=== PATIENT | female | born 1945 | race Caucasian/White ===

== ENCOUNTER 2017-07-01 06:47 | Day surgery (SDC) | payer OTHER ==
[2017-06-29 11:13] LABS: Absolute Lymphocytes (CBC) 2.2 K/uL (0.7-4.9); Absolute Monocytes 0.6 K/uL (0.1-1.3); Basophils % 0.3 % (0-1.3); Eosinophils % 3.7 % (0-4.4); Hematocrit 44.9 % (36.0-45.0); Lymphocytes % 24.5 % (15.3-44.8); MCH 30.4 pg (27.0-35.0); MCV 93.1 fL (80-100); MPV 9.9 fL (7.6-11.3); Monocytes % 6.2 % (3.3-12.3); RBC Red Blood Cell Count 4.83 M/uL (3.86-4.86)
[2017-07-01] MEDS ORDERED: Ringers Lactate 1,000 ML IV ONE (07:02)
[2017-07-01] MEDS ORDERED: MIDAZOLAM HCL 2 MG/2 ML INJ ONE (08:20)
[2017-07-01] MEDS ORDERED: PROPOFOL 200 MG/20 ML VIAL IV ONE (08:40)
[2017-07-01] MEDS ORDERED: LIDOCAINE 1% MPF 2 ML AMPULE ONE ×2 (08:40→08:52)
[2017-07-01] MEDS ORDERED: FENTANYL CITR 100 MCG/2 ML ONE (08:41)
[2017-07-01] MEDS ORDERED: MEPERIDINE HCL 50 MG/ML AMP ONE (09:35)
--- NOTE | 2017-07-01 21:10 | OP ---
Date of Procedure: 07/01/2017 Surgeon: Melissa Sterling MD Preoperative Diagnosis: Pelvic pain, postmenopausal bleeding and thickened endometrium. Postoperative Diagnoses: Pelvic pain, postmenopausal bleeding and thickened endometrium. Procedures Performed: Hysteroscopy, D and C, endometrial curettings with the Symphion resectoscope d evice. Anesthesia: General with LMA. Specimens: Endometrial curettings. Complications: None. Drains: None. Condition: Stable. Indications: The patient is a 72-year-old who initially presented with postmenopausal bleeding and P ap that was AGC, however, colposcopy was negative. Repeat Pap negative in 6 months. However, althou gh the postmenopausal bleeding had resolved, she continues to have pelvic pain and on repeat endometr ial evaluation with ultrasound and this appeared to be thickened, so we discussed the options of poss ible underlying uterine atypia and endometrial atypia or malignancy. The patient understood that she has option of doing re-sampling procedure using a different technique like resectoscope or proceedin g with a hysterectomy or observation with ultrasound followup. The patient chose to have the hystero scopy with the resectoscope, so she was brought into the hospital for this. Procedure In Detail: After re-consenting, she was taken back to the OR, placed in a supine fashion o n the operating table. General anesthesia was given and placed in a dorsal lithotomy position. Cerv ix, vulva, vagina, and perineum were prepped and draped in a sterile fashion. Anterior lip was grasp ed with 2 Allis clamps, which appeared to not be very stable on the cervix, so a single-tooth tenacul um was placed. Then, using the dilators, the cervix was dilated to 14-Amharic. Then, the resectoscop e was inserted under direct visualization through the cervical canal. Uterine cavity was entered. T he cavity was empty. The endometrium appeared to be slightly irregular and thickened in the anterior wall. Rest of the endometrium appeared to be mostly normal, not very atrophic however, so the resec toscope device was opened up and inserted through the scope and dissection was done in a 360 degree f ashion on all the jin, especially paying attention to the anterior jin. After adequate tissue wa s obtained, the scope was pulled out. There was excellent hemostasis. All the instruments were pull ed out. Instrument, needle, and sponge counts were correct at the end of the case. The patient tole rated the procedure well. She will follow up with me in 1 week for results. JOSE Voice ID: [id number] Report ID: [id number]
== END 2017-07-01 10:25 | disposition home or self-care (01) ==
LOC: OR 06:47
PROVIDERS: ATTEND Obstetrics & Gynecology
PROC: 0UDB8ZX Extraction of Endometrium, Via Natural or Artificial Opening Endoscopic, Diagnostic (ICD-10-PCS; principal; 2017-07-01 08:00)
DX: N95.0 Postmenopausal bleeding (principal); R10.2 Pelvic and perineal pain; K57.30 Diverticulosis of large intestine without perforation or abscess without bleeding; R93.8 Abnormal findings on diagnostic imaging of other specified body structures; N84.0 Polyp of corpus uteri; I10 Essential (primary) hypertension; E78.00 Pure hypercholesterolemia, unspecified; R12 Heartburn; E66.9 Obesity, unspecified; Z80.0 Family history of malignant neoplasm of digestive organs; Z83.3 Family history of diabetes mellitus
CPT/HCPCS: 36415; 58558; 85025; 88305; J2001 ×2; J2175; J3010; J2250

== ENCOUNTER 2017-08-05 05:56 | Day surgery (SDC) | payer OTHER ==
[2017-08-03 14:54] LABS: Absolute Lymphocytes (CBC) 2.5 K/uL (0.7-4.9); Absolute Monocytes 0.6 K/uL (0.1-1.3); Absolute Neutrophil 5.2 K/uL (1.8-8.0); Basophils % 0.7 % (0-1.3); Eosinophils % 5.4 % (0-4.4); Hematocrit 43.9 % (36.0-45.0); Lymphocytes % 28.6 % (15.3-44.8); MCH 30.5 pg (27.0-35.0); MCV 93.2 fL (80-100); MPV 10.5 fL (7.6-11.3); Monocytes % 6.5 % (3.3-12.3); RBC Red Blood Cell Count 4.71 M/uL (3.86-4.86)
[2017-08-03 14:55] LABS: Urine Appearance CLOUDY; Urine Blood NEGATIVE (NEG); Urine Color DK YELLOW; Urine Glucose NEGATIVE (NEG); Urine Protein TRACE (NEG); Urine Specific Gravity >=1.030 (1.005-1.030); Urine pH 5.5 (5.0-7.0)
[2017-08-03 14:58] LABS: Urine Microscopic Reflex ORDER UMIC
[2017-08-03 15:00] LABS: Protime INR 0.97
[2017-08-03 15:08] LABS: Potassium 4.4 mEq/L (3.6-5.0)
[2017-08-03 15:13] LABS: Urine Bacteria <20 /HPF (<20); Urine Culture Reflex Order NOT NEEDED; Urine Mucus 3+ /HPF (NONE SEEN); Urine RBC <5 /HPF (NONE SEEN)
[2017-08-03 15:14] LABS: Calcium Oxalate Crystals- Ur MODERATE (NONE SEEN)
[2017-08-05] MEDS ORDERED: PROPOFOL 200 MG/20 ML VIAL IV ONE (06:35)
[2017-08-05] MEDS ORDERED: GLYCOPYRROLATE 0.2 MG/ML SYR ONE ×2 (06:36)
[2017-08-05] MEDS ORDERED: LIDOCAINE 2% MPF 5 ML VIAL ONE (06:37)
[2017-08-05] MEDS ORDERED: FENTANYL CITR 250 MCG/5 ML ONE (06:37)
[2017-08-05] MEDS ORDERED: NEOSTIGMINE 1 MG/ML -5 ML SYRINGE ONE (06:39)
[2017-08-05] MEDS ORDERED: ONDANSETRON HCL 40 MG/20 ML VIAL ONE ×2 (06:39→09:25)
[2017-08-05] MEDS ORDERED: ROCURONIUM 50 MG/5 ML VIAL IV ONE ×2 (06:40→08:05)
[2017-08-05] MEDS ORDERED: MIDAZOLAM HCL 2 MG/2 ML INJ ONE (07:09)
[2017-08-05] MEDS ORDERED: SCOPOLAMINE HYDROBROMIDE PATCH TD ONE (07:11)
[2017-08-05] MEDS: CEFAZOLIN/SWI 2gm 2 GM/20 ML SYR IV ONE ×2 (07:19→07:28)
[2017-08-05] MEDS: NA CHLORIDE 0.9% 1,000 ML ONE ×2 (07:19→07:30)
[2017-08-05] MEDS ORDERED: EPHEDRINE SULF 50 MG/5 ML SYR ONE (07:33)
[2017-08-05] MEDS: Ringers Lactate 1,000 ML IV ONE ×2 (09:03→09:21)
[2017-08-05] MEDS ORDERED: Ringers Lactate 1,000 ML IV ONE (09:17)
[2017-08-05] MEDS ORDERED: MORPHINE 10 MG/ML VIAL ONE (09:26)
[2017-08-05] MEDS ORDERED: CEFAZOLIN SODIUM 1 GM/VIAL ONE (10:00)
[2017-08-05] MEDS ORDERED: ONDANSETRON 4 MG/2 ML VIAL ONE (11:37)
[2017-08-05] MEDS ORDERED: PROMETHAZINE 25 MG/ML VIAL ONE (12:27)
--- NOTE | 2017-08-05 12:48 | OP ---
Date of Procedure: 08/05/2017 Surgeon: Melissa Sterling MD Preoperative Diagnoses: Pelvic pain. Endometrial polyps. Postoperative Diagnoses: Pelvic pain. Endometrial polyps. Procedures Performed: Laparoscopic-assisted vaginal hysterectomy, bilateral salpingo-oophorectomy, p elvic washings. Anesthesia: General. Specimens: Uterus, tubes, ovaries, and pelvic washings. Complications: No complications. Drains: No drains. Condition: Stable. Estimated Blood Loss: 50 mL. Findings: Uterus normal size. Evidence of bilateral tubal ligation. Ovaries normal. No other omen rahat masses. Appendix appeared to be normal, as was the gallbladder. The liver had slightly nodular surface. Description Of Procedure: After informed consent was verified, the patient was taken back to the OR, 2 g of Ancef was given. She was placed in a supine position on the operating table. After general anesthesia was given, she was placed in dorsal lithotomy position using Randall stirrups. Arms were tu cked by the side, and on the right side the protective armboard was placed to keep it tucked. Pelvic exam was performed. Uterus was found to be anteflexed, about 8 weeks size. No adnexal masses . Uterus was mobile. No cul-de-sac obliteration. Abdomen, vulva, vagina, and perineum were prepped and draped in a sterile fashion. Mcintyre was placed to drain the bladder and attached to cysto tubing to an LR bag, emptied 300 for retrograde filling, a nd this was left over for drainage. A large VCare was introduced into the uterus and fixed in place in the usual fashion. This area was draped. A 1 cm infraumbilical incision was made with a scalpel using the open laparoscopy technique. Fascia was exposed and incised and tagged with 0 Vicryl sutures. The peritoneum was entered sharply as well . S retractors placed inside the peritoneal cavity and Uriel trocar introduced intact and fixed in place. Survey of the abdominal cavity showed the findings as above. Normal gallbladder, liver, and appendix . The omental and peritoneal surfaces were normal. Omentum appeared to be unremarkable. The patien t was placed in Trendelenburg. This patient had a very expansive peritoneal cavity. She needed to b e in steep Trendelenburg for retraction of bowel. A 10 mm suprapubic and two 5 mm left lower and rig ht lower quadrant ports were placed under direct vision. After exposing the uterus, pelvic washings were performed. Both ureters were identified from the pelvic brim to the ureteric tunnel. There was no evidence of any scar tissue or distortion. Using the bipolar LigaSure, the left mesosalpinx, utero-ovarian ligament, round ligament were all ramez en down. The broad ligament was opened up on both peritoneal surfaces and taken down to skeletonize the vessels. On the opposite side, similar dissection was performed and taken down the utero-ovarian ligament, then the mesosalpinx and round ligament, the 2 leaves of the broad ligament ant eriorly and posteriorly connecting the bladder flap anteriorly and posteriorly to the right uterosacr al ligament. The broad ligaments were taken down, and the vessels were identified. The bladder was cleaned up. The anterior bladder flap was cleared up completely. The vesicovaginal space was entere d by making an incision on top of the precervical fascia getting into the space with a monopolar hook blade. Then, the bladder was dissected inferiorly about 2 cm on all sides, and once the cuff was cl eared up, the vessels were taken down on the right side, then on the left side. Then, colpotomy was performed in a circumferential fashion to separate the uterus and take it down. Then after the uteru s was detached, it was pulled out through the vagina, both tubes and ovaries were exposed. Then the tubes and ovaries were and taken down with the help of the LigaSure, first on the left, then on the r ight side having each other and pulled out through the suprapubic trocar. There was difficulty with the bowel falling on top of the vaginal cuff. The retraction was very diff icult the entire time, so I decided to go down vaginally to close the vaginal cuff. Exposure was obtained with the help of a Jones speculum posteriorly. Anteriorly, a Roby and the eleazar ewall with a [place] as well. Starting at the right end of the cuff, the 0 Vicryl sutures were placed full thickness into the vaginal cuff anteriorly and posteriorly and 5 [id number] sutures were p laced and tied down. Went back superiorly to make sure that the bowel was free and no omentum was st uck there or the epiploicae, and it was completely clear. There was good hemostasis at the vaginal c uff. There was excellent hemostasis at both adnexal areas. Thorough irrigation and suction were per formed. Trocars were removed under direct vision. Fascia at the umbilicus closed with the help of a 0 Vicryl in a nbioms-ec-kokha fashion, and a simple 0 Vicryl stitch at the suprapubic site. All ski n incisions closed with the help of 4-0 Monocryl and Mcintyre removed. VCare bulb removed. Instrument, needle, and sponge counts and the other instrument counts were all correct. She was recovered from anesthesia and taken to PACU in stable condition. She will follow up with me in 1 week. CHEIKH/DEVANTE Voice ID: [id number] Report ID: [id number]
[2017-08-05] MEDS ORDERED: HYDROCODONE/APAP 5/325 MG TAB ONE (14:17)
== END 2017-08-05 14:52 | disposition home or self-care (01) ==
LOC: OR 05:56
PROVIDERS: ATTEND Obstetrics & Gynecology
PROC: 0UT2FZZ Resection of Bilateral Ovaries, Via Natural or Artificial Opening With Percutaneous Endoscopic Assistance (ICD-10-PCS; 2017-08-05)
PROC: 0UT7FZZ Resection of Bilateral Fallopian Tubes, Via Natural or Artificial Opening With Percutaneous Endoscopic Assistance (ICD-10-PCS; 2017-08-05)
PROC: 0UT9FZZ Resection of Uterus, Via Natural or Artificial Opening With Percutaneous Endoscopic Assistance (ICD-10-PCS; principal; 2017-08-05 07:00)
DX: N85.02 Endometrial intraepithelial neoplasia [EIN] (principal); N84.0 Polyp of corpus uteri; N80.0 Endometriosis of uterus; I10 Essential (primary) hypertension; E78.00 Pure hypercholesterolemia, unspecified; F41.9 Anxiety disorder, unspecified; R12 Heartburn; E66.01 Morbid (severe) obesity due to excess calories; Z80.0 Family history of malignant neoplasm of digestive organs; Z83.3 Family history of diabetes mellitus
CPT/HCPCS: 36415; 58552; 80048; 85025; 85610; 85730; 86850; 86900; 86901; 88108; 88305; 88307; J0690 ×2; J2250; J2405 ×3; J2550; J2710; J7030; 81003; 81015

== ENCOUNTER 2020-12-03 07:29 | Day surgery (SDC) | payer OTHER ==
[2020-11-29 15:26] LABS: Absolute Lymphocytes (CBC) 3.2 K/uL (0.7-4.9); Basophils % 0.8 % (0-1.3); Hematocrit 40.4 % (36.0-45.0); MPV 9.5 fL (7.6-11.3); RBC Red Blood Cell Count 4.32 M/uL (3.86-4.86)
--- NOTE | 2020-11-29 15:33 | RAD REPORT ---
EXAM DESCRIPTION: RAD - Chest Pa And Lat (2 Views) - 11/29/2020 3:10 pm CLINICAL HISTORY: Pre Op pending hernia surgery COMPARISON: None TECHNIQUE: Frontal and lateral views of the chest were obtained. FINDINGS: The lungs are clear. Heart size is normal and central vasculature is within normal limit s. No pleural effusion or pneumothorax seen. No acute bony finding noted. No aortic abnormality. IMPRESSION: No acute cardiopulmonary process.
[2020-12-03] MEDS ORDERED: CEFAZOLIN/NS 1gm 1 GM/50 ML BAG ONE (08:10)
[2020-12-03] MEDS ORDERED: NA CHLORIDE 0.9% 1,000 ML ONE (08:10)
[2020-12-03] MEDS ORDERED: LIDOCAINE 2% MPF 5 ML VIAL ONE (08:30)
[2020-12-03] MEDS ORDERED: MIDAZOLAM HCL 2 MG/2 ML INJ ONE (08:30)
[2020-12-03] MEDS ORDERED: FENTANYL CITR 100 MCG/2 ML ONE (08:30)
[2020-12-03] MEDS ORDERED: ROCURONIUM 50 MG/5 ML VIAL IV ONE (08:31)
[2020-12-03] MEDS ORDERED: propofoL 200 MG/20 ML VIAL IV ONE ×2 (08:31→09:19)
[2020-12-03] MEDS ORDERED: BUPIVACAINE 0.5% PF 10 ML VIAL ONE (08:32)
[2020-12-03] MEDS ORDERED: SUCCINYLCHOLINE 20 MG/ML (10 ML) IV ONE (08:38)
[2020-12-03] MEDS ORDERED: GLYCOPYRROLATE 0.2 MG/ML SYR ONE (09:27)
[2020-12-03] MEDS ORDERED: NEOSTIGMINE 1 MG/ML -5 ML ONE (09:28)
[2020-12-03] MEDS ORDERED: EPHEDRINE SULF 50 MG/ML VIAL ONE (09:29)
--- NOTE | 2020-12-03 09:53 | P.BOP ---
Preoperative diagnosis: incisional incarcerated ventral hernia Postoperative diagnosis: same plus extensive intrabdominal adhesions Primary procedure: 1. Laparoscopic repair of incisional incarcerated ventral hernia with mesh Secondary procedure: 2. Laparoscopic lysis of adhesions Battery Charger: Leslye Rose) Estimated blood loss: <20cc Specimen: hernia sac Findings: incisional incarcerated ventral hernia, extensive intrabdominal adhesions Anesthesia: General Complications: None Implants: Ventralight ST mesh with ECHO PS Transferred to: Recovery Room Condition: Good
[2020-12-03] MEDS ORDERED: KETOROLAC 30 MG/ML INJ ONE (10:10)
[2020-12-03] MEDS ORDERED: ONDANSETRON 4 MG/2 ML VIAL ONE (10:10)
[2020-12-03] MEDS: HYDROMORPHONE HCL 1 MG/ML INJ ONE ×2 (10:33→10:38)
[2020-12-03 11:38] VITALS: BP 139/50; TEMP 97.6
[2020-12-03] MEDS ORDERED: TRAMADOL 37.5mg/APAP 325mg PER TAB ONE (12:46)
[2020-12-03 12:58] VITALS: O2SAT 97
--- NOTE | 2020-12-03 13:27 | DS ---
Date of Discharge: 12/03/2020 Diagnoses: Incisional incarcerated ventral hernia plus extensive intraabdominal adhesions. Procedures: Laparoscopic repair of incisional incarcerated hernia with mesh and extensive laparoscop ic adhesions. Disposition: Home. Activity: As tolerated. No heavy lifting. Plan: Follow up in my office in 1 week. Call for appointment at [phone]. Keep area dry until she sees us once again in the office. Use an abdominal binder. Medications: We are going to give her Ultracet q.4 hours p.r.n. pain. RAMU/DEVANTE Voice ID: [id number] Report ID: [id number]
--- NOTE | 2020-12-03 13:36 | OP ---
Date of Procedure: 12/03/2020 Surgeon: Osbaldo Lopez MD Supervisor Home [employer]: RASHIDA Shaw. Preoperative Diagnoses: Incisional incarcerated ventral hernia, morbid obesity. Postoperative Diagnoses: Incisional incarcerated ventral hernia, morbid obesity plus extensive intra abdominal adhesions. Procedures: 1.Laparoscopic repair of incisional incarcerated ventral hernia with mesh. 2.Laparoscopic lysis of adhesions. Estimated Blood Loss: Less than 20 mL. Specimen: Hernia sac. Findings: Incarcerated omentum going through an incisional ventral hernia. The patient also has an umbilical hernia present nearby, although it is not the same thing. Both of them have to be get toge ther since it was only a bridge of tissue underneath. The lysis of adhesions took about half of the time of this case and we were able to separate that and bring that down. There was a small bowel lili rby, but no enterotomies was done. Anesthesia: General plus local. Indication: This is the case of a 75-year-old patient with ventral incisional pain, found to have an incarcerated ventral hernia. The patient has previous surgeries with a laparotomy through that area for hysterectomy. The benefits, alternatives, and risks of laparoscopic possible open repair of satinder tral hernia repair with mesh fully explained, which include, but not limited to infection, bleeding, damage to adjacent structures, anesthesia complication, recurrence, VA, and even . She also und erstands this may not relieve any symptoms. She might need more than one surgical intervention. She understood, signed a consent. The patient was explained we may need a mesh in that region. Pros an d cons of mesh placement were discussed with the patient and after answering all her questions to her satisfaction, she did consent for the mesh use. She understands the importance of no heavy lifting and also of losing weight too. She signed a consent. Procedure In Detail: The patient was brought to the operating room, placed in supine position. Anes thesia was done without complication. Abdominal area was prepped and draped in usual sterile fashion . A time-out was called. Marcaine 0.5% was injected in the epigastric region. We were going to try ing to approach this and put our first trocar away from the area of the disease since there was a lar ge hernia and we suspect small bowel underneath. When we opened incision, found down to fascia, open ed under direct vision. Vicryl #1 placed inside the fascia. Uriel trocar was carefully introduced. Pneumoperitoneum was obtained. This allowed me to visualize the area and a lot of adhesions presen t in that area. Small bowel also attached to the anterior abdominal wall with a hernia just over the incision and also another hernia just a few cm above through the umbilical region. toget her and we might have to put this into 1 defect only and repair. This allowed me to put a 5 mm troca r on the lateral side of the abdomen and using LigaSure, carefully we proceeded to do the lysis of ad hesions to significant amount of time to do that since we have bowel next to it and we tried to preve nt any enterotomies. Once the adhesion was down, we checked for hemostasis, no bleeding. We were ab le to visualize the hernia defects. The content was reduced. We made an incision in the ventral reg ion since we have to clean some of the area of the fascia laparoscopically. It was diffic ult at this moment. Once we opened that incision, we were able to remove the hernia sac and removal a bridge of fascia between that and the base of the umbilical region and made this 1 defect. The fas cial edges were cleaned. We proceeded to approximate the fascial edges using #1 Prolene in a figure- of-eight fashion multiple times. Before we closed that entirely, we proceeded to place a Ventralight ST with Echo Positioning system intraperitoneally and the catheter coming through the incision. We tied all the stitches except 1 to allow freedom of the catheter well, we just removed its layer. We obtained pneumoperitoneum once again and we visualized the defect. We went at least 3-5 cm away from the area of the defects. We proceeded to inflate the balloon and that mesh looked nice and flat aga inst the peritoneum. We proceeded to secure the mesh with the help of CapSure device. The balloon w as deflated, removed, and then we proceeded to further secure the area circumferentially and then in the middle to make sure there was any bowel that can go in between. The area was irrigated. We chec ked the area of the lysis of adhesions and looked intact. The last stitch in the fascia was closed. We noticed seal not only to liquid, but also to air. At that moment, I proceeded to under direct vi sualization remove the trocars under direct vision. Deflated the pneumoperitoneum. We irrigated sub cutaneous tissue, closed that with 3-0 chromic and the laparoscopic sites with 3-0 chromic and the mi dline with brittany. Sponge count and instrument count correct. We injected the area before closure. The patient was sent to recovery in stable condition. RAMU/DEVANTE Voice ID: [id number] Report ID: [id number]
== END 2020-12-03 12:50 | disposition home or self-care (01) ==
LOC: OR 07:29
PROVIDERS: ATTEND Surgery
PROC: 0DNW4ZZ Release Peritoneum, Percutaneous Endoscopic Approach (ICD-10-PCS; 2020-12-03)
PROC: 0WUF4JZ Supplement Abdominal Wall with Synthetic Substitute, Percutaneous Endoscopic Approach (ICD-10-PCS; principal; 2020-12-03 08:30)
DX: K43.6 Other and unspecified ventral hernia with obstruction, without gangrene (principal); E66.01 Morbid (severe) obesity due to excess calories; K66.0 Peritoneal adhesions (postprocedural) (postinfection); Z20.822 Contact with and (suspected) exposure to COVID-19
CPT/HCPCS: 93005; 85025; 80048; 36415; 82947 ×2; 88302; 71046; 49653; 49329; U0003; J2704 ×2; J0330; J2250; J3010; J1170; J2710; J0690; J7030; J2405